=== PATIENT | male | born 1955 | race Caucasian/White ===

== ENCOUNTER 2018-03-14 00:24 | Outpatient (CLI) | payer OTHER, SELFPAY ==
--- NOTE | 2018-03-14 15:10 | DI.RAD_ITS ---
SYMPTOMS/DIAGNOSIS: F/U STONE, H/O KIDNEY STONES, Z87.442, HORSESHOE KIDNEY, Q63.1 KUB: Comparison x-ray is 09/09/17. Comparison CT scan is 09/15/15. There are again seen stones overlying the lower pole of the left kidney and the upper pole of the left kidney, consistent with nephrolithiasis. This patient has a known horseshoe kidney. There is also a round calcification overlying the left aspect of the 4th lumbar vertebral body, consistent with a known stone in the inferior portion of the horseshoe kidney. Surgical clips are again seen in the right abdomen. The bowel gas pattern is nonspecific. The bones are intact. IMPRESSION: Stable bilateral nephrolithiasis.
== END 2018-03-14 00:44 ==
PROVIDERS: Visit Provider Urology
DX: N20.0 Calculus of kidney (principal); Z87.442 Personal history of urinary calculi; Q63.1 Lobulated, fused and horseshoe kidney
CPT/HCPCS: 74018

== ENCOUNTER 2019-10-16 14:10 | Outpatient (CLI) | payer OTHER, SELFPAY ==
--- NOTE | 2019-10-16 13:44 | DI.US_ITS ---
EXAM: US RENAL CLINICAL HISTORY: MONITOR STONES, NEW ONSET GROSS HEMATURIA, Q63.1,N20.0,R31.0. TECHNIQUE: Liu scale, color and spectral Doppler were used. COMPARISON: ABD/PELVIS WO W CONTRAST from 09/16/2015 XR ABDOMEN FLAT PLATE from 03/14/2018 FINDINGS: A horseshoe kidney is again noted. Renal size in cm: Right: 15.2 by 5 by 5.6 left: 15.2 x 6.6 x 5.2 cm. Echogenicity: Normal Hydronephrosis: No Cyst or mass: Cyst at the lateral left kidney measuring 3 cm. No mass. Nephrolithiasis: Multiple bilateral renal calculi. 4 millimeter and 5 millimeter calcifications are seen in the mid right kidney. A 9 millimeter stone is seen at the lower pole of the left kidney. Other findings: None Bladder:There is a nonmobile solid mass measuring 1.8 x 1.0 x 1.7 cm showing mild vascularity. There is no bladder wall thickening.. Ureteral jets were not visualized. Prevoid vol:417 cc Postvoid vol: 0 cc Prostate volume: 28 cc IMPRESSION: 1.8 centimeter bladder mass. Cystoscopy is recommended. Bilateral renal calculi. No evidence of hydronephrosis. DATA REPOSITORY:
== END 2019-10-16 14:30 ==
PROVIDERS: Visit Provider Urology
DX: N20.0 Calculus of kidney (principal); R31.0 Gross hematuria; N28.1 Cyst of kidney, acquired; N32.89 Other specified disorders of bladder
CPT/HCPCS: 76770

== ENCOUNTER 2019-10-23 08:44 | Outpatient (CLI) | payer OTHER, SELFPAY ==
[2019-10-24 13:59] LABS: COVID-19 RT-PCR UVMMC Result Negative (Negative)
== END 2019-10-23 09:04 ==
PROVIDERS: Visit Provider Urology
DX: Z11.59 Encounter for screening for other viral diseases (principal)
CPT/HCPCS: U0003

== ENCOUNTER 2019-10-29 06:18 | Day surgery (SDC) | payer OTHER, SELFPAY ==
[2019-10-29 06:20] VITALS: BP 141/82; PULSE 73; RESP 16; TEMP 36.6; O2SAT 95
[2019-10-29] MEDS: Lactated Ringers 1,000 ML 80 ML IV (06:47)
--- NOTE | 2019-10-29 07:11 | W.PM.HP.N ---
Date of service: 10/29/19 Time of Service: 07:11 Assessment and Plan Assessment and plan (1) Hematuria: Status: Chronic Assessment and plan: We will move ahead with cystoscopy and transurethral resection of any visible bladder lesion. We will instill Mitomycin C into the bladder if a tumor is identified. (2) Bladder mass: Status: Acute History of Present Illness History of Present Illness Chief Complaint: Bladder mass Narrative: This is a 64-year-old gentleman who has had intermittent gross painless hematuria. He has a history of kidney stones, so initially he thought that the bleeding was related to his stone disease. We evaluated him with a renal and bladder ultrasound and discovered a small lesion within the bladder. He presents now for cystoscopy with transurethral resection of a presumed bladder tumor. Review of Systems Narrative: No fevers or chills No vision change or dysphasia No diabetes or thyroid No hemoptysis or sputum production No palpitations. Occasional chest pain at rest c/o heartburn. No hepatitis, ulcers, jaundice, diarrhea or constipation No seizures, strokes or peripheral neuropathy No bleeding disorders or anemia No gout [facility] Medical History (Updated 10/29/19 @ 07:13 by Michel Cleary MD) Bladder mass (Acute) Surgical History History of urologic surgery (Acute) Social History (Updated 03/14/18 @ 15:20 by Elyse Lundy RN) Smoking/Tobacco Use Status: Current every day Tobacco Type: cigarettes Alcohol Intake: never Drug use: Never Substance use type: does not use Do you feel safe at home: Yes Do you feel safe in your relationship?: Yes Meds Home Medications and Allergies Home Medications Medication Instructions Recorded Confirmed Type sildenafil (pulm.hypertension) 20 60 mg PO PRN #30 tab-cap MDD 100 mg 02/05/19 10/29/19 Rx mg tablet Allergies Allergy/AdvReac Type Severity Reaction Status Date / Time No Known Allergies Allergy Unverified 10/29/19 06:23 Exam Narrative Exam Narrative: He does not appear septic or toxic His vital signs are documented elsewhere His chest wall motion is normal. His lungs are clear. Cardiac exam shows a regular rate and rhythm His abdomen is soft with no mass He is awake, alert and oriented. Results Last Vital Signs Temp 36.6 C 05/07/20 06:20 Pulse 73 10/29/19 06:20 Resp 16 10/29/19 06:20 BP 141/82 H 10/29/19 06:20 Pulse Ox 95 10/29/19 06:20 COVID-19 Screening Traveled to [place] from one of the affected countries or regions?: NO Medical treatment received for symptoms/illness related to travel?: Preop testing completed and negative
[2019-10-29] MEDS: ceFAZolin 2 GM/50 ML BAG IVPB (07:42)
[2019-10-29] MEDS: Lidocaine 2% Jelly 6 ML SYR (08:05)
--- NOTE | 2019-10-29 08:11 | W.PM.DSUDISC ---
Discharge Plan Disposition Patient Disposition: HOME Condition: Stable Discharge Details Attending Provider: Michel Cleary Primary Care Provider: Unknown,Unknown Home Meds and New Rx's Prescriptions: No Action sildenafil (pulm.hypertension) 20 mg tablet 60 mg PO PRN MDD 100 mg Qty: 30 RF: 12 Discharge Instructions Additional Instructions: I will instill Mitomycin C into his bladder/catheter when it is available. Catheter should then be clamped for 1 to 2 hours (unclamp prn pain) before unclamping, draining bladder and removing thao F/U 1 week for pathology results - can be done by phone if pt is comfortable with that No straining or lifting over 10 pounds for 3 days Activity:: see above Shower/Bathe:: 24 hours Diet:: As Tolerated Discharge Orders Discharge Orders: Discharge Order (Routine); Ordered 10/29/19 Ordered By: Michel Cleary DS: Diagnosis Discharge Diagnosis (1) Hematuria: Status: Chronic (2) Bladder mass: Status: Acute
--- NOTE | 2019-10-29 08:15 | BLADDER_PTH ---
PATIENT: Jaiden Alfonso LOC: [facility] U#:[id number] AGE/SX: 64/M ROOM: RE10/29/[address]: Michel Cleary MD : 1955 BED: DIS: 10/29/2019 SPEC #: [id number] RECD: 10/29/19 12:13 STATUS: MICA RENabil #: [id number] ANTOLIN: 10/29/19 08:[address]: Michel Cleary DEPT: Surgical Specimen RECD BY: Tomas Fine Tissues: 1 - BLADDER BIOPSY Procedures: GROSS AND MICRO LEVEL 5 Comments: [id number]
--- NOTE | 2019-10-29 08:23 | W.PM.OP ---
Date of service: 10/29/19 Time of Service: 08:23 Operative Note Operative Note DATE OF PROCEDURE: 10/29/19 PRE-OP DIAGNOSIS: Bladder mass POST-OP DIAGNOSIS: same PROCEDURE: Cystoscopy, TURBT (2 to 5 cm), Instillation of Mitomycin C into bladder SURGEON: Michel Cleary ANESTHESIA: MAC ESTIMATED BLOOD LOSS: 100 PATHOLOGY: other (Bladder tumor) COMPLICATIONS: None Patient was transported to: same day Patient's condition: stable Indications: This is a 64-year-old gentleman who presented with gross hematuria. We evaluated him with an ultrasound which revealed a mass in the bladder. He presents for transurethral resection of the mass. If the mass has the clinical appearance of a urothelial cell carcinoma, we will plan on instilling a dose of mitomycin into the bladder Findings: 2 to 5 cm papillary lesion at the base of the bladder just behind the trigone Procedure Description: The patient was brought to the operating room on 10/29/2019. He was given preoperative IV antibiotics. After successful induction of monitored anesthesia care, he was placed in the dorsal lithotomy position. His genitalia was prepped and draped. 2% Xylocaine jelly was instilled into the urethra to act as a local anesthetic. A 24 Syrian resectoscope sheath was passed through the urethra into the bladder. We used a visual obturator and a 30 degree lens to inspect the urethral and bladder mucosa. The pendulous, bulbous and membranous urethra was appeared normal. The prostatic urethra showed diffuse enlargement with an elevated bladder neck. The bladder neck was entered and the bladder mucosa was inspected. Both ureteral orifices appeared normal. On the bladder base, just behind the trigone in the midline there was a 3 cm papillary lesion which had a typical appearance of a low-grade urothelial cell carcinoma. No additional lesions were identified throughout the remainder of the bladder. We then used the [employer] resectoscope to excise the lesion. We cauterized the base of the resection site. Both ureteral orifice ease appeared intact after the resection. Once hemostasis had been obtained, we passed a 16 Syrian Ramirez catheter through the urethra into the bladder. We inflated the catheter balloon with 10 cc of sterile water. We asked the pharmacy to mix 40 mg of mitomycin-C and 40 mL of dilutant. We will plan on instilling the medication into the bladder and clamped the catheter while the patient is back in day surgery. He tolerated the procedure well. I would estimate his blood loss at 100 cc.
[2019-10-29] MEDS: Phenazopyridine 200 MG TAB PO (08:34)
[2019-10-29 08:50] VITALS: BP 161/83; PULSE 62; RESP 16; TEMP 36.3; O2SAT 94
[2019-10-29 09:18] VITALS: BP 135/78; PULSE 61; RESP 16; TEMP 36.4; O2SAT 94
== END 2019-10-29 10:05 | disposition home or self-care (01) ==
PROVIDERS: Visit Provider Urology
PROC: 0TBB8ZZ Excision of Bladder, Via Natural or Artificial Opening Endoscopic (ICD-10-PCS; CPT 52235; principal; 2019-10-29 07:30)
PROC: (CPT 52235; 2019-10-29 07:30)
DX: C67.9 Malignant neoplasm of bladder, unspecified (principal); R31.0 Gross hematuria; F17.210 Nicotine dependence, cigarettes, uncomplicated
CPT/HCPCS: 52235; 51720; 88305; NC; 88307; J0690; J1885; J2001; J2704

== ENCOUNTER 2020-05-06 15:00 | Outpatient (CLI) | payer OTHER, SELFPAY ==
[2020-05-09 12:34] LABS: SARS-CoV-2 RNA Not Detected (NotDetected); SARS-CoV-2 RNA Source Nasal/Nares
== END 2020-05-06 15:20 ==
PROVIDERS: Visit Provider Urology
DX: Z20.828 Contact with and (suspected) exposure to other viral communicable diseases (principal)
CPT/HCPCS: U0003

== ENCOUNTER 2020-08-19 10:50 | Outpatient (REF) | payer OTHER, SELFPAY ==
--- NOTE | 2020-08-19 09:30 | PAPNONF_PTH ---
PATIENT: Jaiden Alfonso LOC: [facility] U#:[id number] AGE/SX: 65/M ROOM: RE08/19/[address]: Michel Cleary MD : 1955 BED: DIS: 08/19/2020 SPEC #: [id number] RECD: 08/19/20 12:56 STATUS: MICA REQ #: [id number] ANTOLIN: 08/19/20 09:[address]: Michel Cleary DEPT: [facility] Cytology RECD BY: Shyla Rodríguez Tissues: 1 - BODY FLUID CYTO(SPUTUM/URINE)[facility] Procedures: BODY FLUID CYTO(URINE/SPUTUM) Comments: [id number] (TOTAL VOLUME = 30 ml's) (30 ml'S URINE & 30 ml's CYTOLYT ADDED)
== END 2020-08-19 10:51 | disposition home or self-care (01) ==
LOC: LBN 10:50
PROVIDERS: Visit Provider Urology
DX: R82.89 Other abnormal findings on cytological and histological examination of urine (principal); Z85.51 Personal history of malignant neoplasm of bladder
CPT/HCPCS: 88104

== ENCOUNTER 2020-11-22 09:43 | Outpatient (REF) | payer OTHER, SELFPAY ==
--- NOTE | 2020-11-22 09:00 | PAPNONF_PTH ---
PATIENT: Jaiden Alfonso LOC: [facility] U#:[id number] AGE/SX: 65/M ROOM: RE11/22/[address]: Michel Cleary MD : 1955 BED: DIS: 11/22/2020 SPEC #: [id number] RECD: 11/22/20 13:05 STATUS: MICA RENabil #: [id number] ANTOLIN: 11/22/20 09:[address]: Michel Cleary DEPT: COUNTS INCLUDE 234 BEDS AT THE [facility] Cytology RECD BY: Shyla Rodríguez Tissues: 1 - BODY FLUID CYTO(SPUTUM/URINE)[facility] Procedures: BODY FLUID CYTO(URINE/SPUTUM) Comments: (TOTAL VOLUME = 60 ml's) (30 ml's URINE & 30 ml's CYTOLYT ADDED IN 2 CONTAINERS)
== END 2020-11-22 09:44 | disposition home or self-care (01) ==
LOC: LBN 09:43
PROVIDERS: Visit Provider Urology
DX: Z85.51 Personal history of malignant neoplasm of bladder (principal)
CPT/HCPCS: 88104

== ENCOUNTER 2021-01-17 03:18 | Outpatient (CLI) | payer OTHER, SELFPAY ==
[2021-01-17 11:33] LABS: Source Nasal/Nares
[2021-01-17 15:18] LABS: COVID-19 PCR Negative (Negative)
== END 2021-01-17 03:19 | disposition home or self-care (01) ==
LOC: LBO 03:18
PROVIDERS: Visit Provider Urology
DX: Z20.822 Contact with and (suspected) exposure to COVID-19 (principal); Z01.818 Encounter for other preprocedural examination
CPT/HCPCS: 87635

== ENCOUNTER 2021-01-19 06:08 | Day surgery (SDC) | payer OTHER, SELFPAY ==
[2021-01-19 06:19] VITALS: BP 157/70; PULSE 58; RESP 16; TEMP 36.3; O2SAT 98
[2021-01-19] MEDS: Lactated Ringers 1,000 ML 80 ML IV (06:48)
--- NOTE | 2021-01-19 06:49 | W.PM.HP.N ---
Date of service: 01/19/21 Time of Service: 06:49 Assessment and Plan Assessment and plan (1) Bladder cancer: Status: Acute Assessment and plan: Cystoscopy, bladder biopsy and fulguration of the biopsy sites. His followup and additional treatments will depend on his pathology. History of Present Illness History of Present Illness Chief Complaint: Bladder cancer Narrative: This is a 65-year-old gentleman who has a history of urothelial cell carcinoma of the bladder. There was high-grade and had a inverted growth pattern. He was treated with transurethral resection but has not received intravesical chemotherapy or immunotherapy. On surveillance cystoscopy, we found a papillary lesion medial to the right ureteral orifice. He presents for biopsy and fulguration. Review of Systems Narrative: No fevers or chills No vision change or dysphasia No diabetes or thyroid No shortness of breath, cough or hemoptysis No chest pain or palpitations No nausea, vomiting, hepatitis, ulcers, jaundice No seizures, strokes or peripheral neuropathy No bleeding disorders or anemia No gout PFSH Medical History Bladder cancer Right hydrocele Surgical History History of urologic surgery Social History (Updated 03/14/18 @ 15:20 by Elyse Lundy RN) Smoking/Tobacco Use Status: Current every day Tobacco Type: cigarettes Smoking risk assessment performed?: Yes Alcohol Intake: never Drug use: Never Substance use type: does not use Current gender identity: male Do you feel safe at home: Yes Do you feel safe in your relationship?: Yes Meds Allergies and Home Medications Allergies Allergy/AdvReac Type Severity Reaction Status Date / Time No Known Allergies Allergy Unverified 01/19/21 06:26 Home Medications Medication Instructions Recorded Confirmed Type sildenafil 100 mg tablet 100 mg PO DAILY PRN #10 tab 02/19/20 01/19/21 Rx Exam Narrative Exam Narrative: Current distress. He is cooperative. His vital signs are documented elsewhere His chest wall motion is normal. He is not short of breath at rest. Cardiac exam shows a regular rate and rhythm His abdomen is soft with no mass He is awake and alert Results Last Vital Signs Temp 36.3 C L 01/19/21 06:19 Pulse 58 L 01/19/21 06:19 Resp 16 01/19/21 06:19 BP 157/70 H 01/19/21 06:19 Pulse Ox 98 01/19/21 06:19
--- NOTE | 2021-01-19 07:03 | W.ANESPRE ---
General Info Date of Service Date Performed: 01/19/21 Height: 6 ft Weight: 118.1 kg Body Mass Index (BMI): 35.3 Surgical Procedure: Operation Date: 01/19/21 07:40 Proposed Procedures Side Surgeon p Cystoscopy with Bladder Biopsy WITH FULGURATION Michel Cleary MD Meds Allergies and Home Medications Allergies Allergy/AdvReac Type Severity Reaction Status Date / Time No Known Allergies Allergy Unverified 01/19/21 06:26 Home Medication Medication Instructions Recorded sildenafil 100 mg tablet 100 mg PO DAILY PRN #10 tab 02/19/20 Current Visit Medications: Current Medications Generic Name Dose Route Start Last Admin Trade Name Freq PRN Reason Stop Dose Admin Ringer's Solution 1,000 mls @ 80 mls/hr 01/19/21 06:00 01/19/21 06:48 IV 02/17/21 23:59 80 mls/hr INFUSION MARGUERITE Administration Cefazolin Sodium/Dextrose 2 gm in 50 mls @ 100 mls/hr 01/19/21 06:00 Ancef Duplex IVPB 01/19/21 16:00 PREOP MARGUERITE IV Miscellaneous Supplies 1 each 01/19/21 06:00 Iv Access IV 02/17/21 23:59 DIRECTED MARGUERITE Sodium Chloride 0 ml 01/19/21 06:00 Normal Saline Flush 10 Ml Syr IV 02/17/21 23:59 PRN PRN Sodium Chloride 0 ml 01/19/21 06:00 Normal Saline 10 Ml Vial IJ 02/17/21 23:59 DIRECTED PRN Sterile Water 0 ml 01/19/21 06:00 Water,Injection,Sterile 10 Ml Vial IJ 02/17/21 23:59 DIRECTED PRN PFSH Active Problems Active Problems: Problem Status Onset Code Right hydrocele N43.3 Bladder cancer C67.9 Kidney stones N20.0 Horseshoe kidney with renal calculus Q63.1, N20.0 Medical History Medical History Bladder cancer Right hydrocele Surgical History Surgical History History of urologic surgery Tobacco Smoking/Tobacco Use Status: Current every day Tobacco Type: cigarettes Alcohol Alcohol Intake: never Substance Use Substance use: Never Substance use type: does not use Vital Signs and Lab Results Vital Signs Most Recent Vital Signs in EMR: Most Recent Vital Signs Temp Pulse Resp BP Pulse Ox 36.3 C L 58 L 16 157/70 H 98 01/19/21 06:19 01/19/21 06:19 01/19/21 06:19 01/19/21 06:19 01/19/21 06:19 Lab Results Blood Type / Crossmatch: No Data to Display Complete Blood Count: No Data to Display Complete Metabolic Panel: No Data to Display Liver Function Panel: No Data to Display Coagulation Panel: No Data to Display Cardiac Panel: No Data to Display Arterial Blood Gas: No Data to Display Venous Blood Gas: No Data to Display Pancreas Panel: No Data to Display Thyroid Panel: No Data to Display Infectious Disease: Coronavirus (COVID-19)(PCR) Negative (Negative) 01/17/21 08:33 01/17/21 Coronavirus 2019 Source Nasal/Nares 01/17/21 08:33 01/17/21 Blood Cultures: No Data to Display Toxicology Panel: No Data to Display Anesthesia Assessment and Plan Anesthesia History Personal History: No History of Anesthesia Complications Family History: No Family History of Anesthesia Complications Exercise Tolerance Exercise Tolerance: Metabolic Equivalents>4 Pertinent Negatives Pertinent Negatives: No Symptoms of GERD, No Major Cardiovascular Symptoms or Complaints, No Major Pulmonary Symptoms or Complaints and No History of CVA/TIA Cardiac & Pulmonary Exam Cardiac Exam: Normal S1/S2 Heart Sounds Pulmonary Exam: Clear Bilateral Breath Sounds Airway Exam Known Difficult Airway: No Mallampati Class: 2 Mouth Opening: Normal (> 3cm) Thyromental Distance: Greater than 3 cm Neck Range of Motion: Full ROM Neck Circumference: Thick Teeth Condition: Normal Dentition ASA Classification ASA Score: ASA 2 Emergency Case?: No NPO Status NPO Status: NPO Clears >2 hours, Solids >8 hours Anesthesia Plan Resuscitation Status: Full Code Anesthesia Technique: General Anesthesia Airway Planned: Natural Airway Monitors Used: Standard Monitors
[2021-01-19 07:09] VITALS: BMI 35.3
[2021-01-19] MEDS: ceFAZolin 2 GM/50 ML BAG IVPB (07:40)
[2021-01-19] MEDS: Lidocaine 2% Jelly 6 ML SYR (07:45)
--- NOTE | 2021-01-19 07:50 | BLADDER_PTH ---
PATIENT: Jaiden Alfonso LOC: [facility] U#:[id number] AGE/SX: 65/M ROOM: RE01/19/[address]: Michel Cleary MD : 1955 BED: DIS: 01/19/2021 SPEC #: [id number] RECD: 01/19/21 12:38 STATUS: MICA REQ #: [id number] ANTOLIN: 01/19/21 07:[address]: Michel Cleary DEPT: Surgical Specimen RECD BY: Shyla Rodríguez ENTERED: 01/19/21 12:38 SP TYPE: Bladder OTHR DR: Unknown,Unknown Tissues: 1 - BLADDER BIOPSY Procedures: GROSS AND MICRO LEVEL 4 Comments: [id number]
--- NOTE | 2021-01-19 07:58 | W.PM.DSUDISC ---
Discharge Plan Disposition Patient Disposition: HOME Condition: Stable Discharge Details Reason For Visit: bladder cancer Attending Provider: Michel Cleary Primary Care Provider: Unknown,Unknown Home Meds and New Rx's Prescriptions: No Action sildenafil 100 mg tablet 100 mg PO DAILY PRN (Reason: sexual activity) Qty: 10 RF: 12 Discharge Instructions Additional Instructions: followup 2 weeks to review pathology Activity:: Activity as Tolerated Shower/Bathe:: 24 hours Diet:: As Tolerated Discharge Orders Discharge Orders: Discharge Order (Routine); Ordered 01/19/21 Ordered By: Michel Cleary DS: Diagnosis Discharge Diagnosis (1) Bladder cancer: Status: Acute
--- NOTE | 2021-01-19 08:00 | W.PM.OP ---
Date of service: 01/19/21 Time of Service: 08:00 Operative Note Operative Note DATE OF PROCEDURE: 01/19/21 PRE-OP DIAGNOSIS: Bladder cancer POST-OP DIAGNOSIS: same PROCEDURE: cystoscopy, bladder biopsy and fulguration of tumor SURGEON: Michel Cleary ANESTHESIA TYPE: Local By Surgeon and General:No Airway Refer to Anesthesia Record ESTIMATED BLOOD LOSS: 5 PATHOLOGY: other (bladder biopsies) COMPLICATIONS: None Patient was transported to: same day Patient's condition: stable Indications: This is a 65-year-old gentleman previously identified as having a high-grade, noninvasive urothelial cell carcinoma of the bladder. He was treated with transurethral resection alone. He has not had intravesical chemotherapy or immunotherapy. On his recent surveillance cystoscopy, there appeared to be some papillary mucosa adjacent to the right ureteral orifice. He presents for biopsy/resection of this area. Findings: papillary mucosa adjacent to right ureteral orifice Procedure Description: Alireza was brought to the operating room on 01/19/2021. After successful induction of general anesthesia without intubation, he was placed in the dorsal lithotomy position. His genitalia was prepped and draped. 2% Xylocaine jelly was instilled into the urethra to act as a local anesthetic. A 22 Italian rigid cystoscope was passed through the urethra into the bladder. The urethra and bladder were inspected with the 30 degree lens. The graft the pendulous bulbar and membranous urethra was all appeared normal with no strictures. The prostatic urethra showed some lateral lobe enlargement but no significant median lobe. The bladder neck was entered and the bladder mucosa was inspected. Ureteral orifice appeared normal. Just medial to the right ureteral orifice, the mucosa appeared to have increased papillary component compared to the remainder of the bladder mucosa. No additional suspicious areas were seen. I used cold cup biopsy forceps to biopsy the mucosa. I then used a Bugbee electrode to fulgurate any remaining lesion as well as the biopsy site. The ureteral orifice itself was not fulgurated. The bladder was emptied and the scope was removed. He tolerated the procedure well with no complications.
[2021-01-19 08:35] VITALS: BP 156/88; PULSE 67; RESP 16; TEMP 36.1; O2SAT 98
--- NOTE | 2021-01-19 08:41 | W.ANESPOSTOP ---
Postoperative Evaluation Date, Time and Location Date Performed: 01/19/21 Time Performed: 08:41 Patient Location: Day Surgery Unit Vital Signs Most Recent Imported Vital Signs: Most Recent Vital Signs Temp Pulse Resp BP Pulse Ox 36.1 C L 67 16 156/88 H 98 01/19/21 08:35 01/19/21 08:35 01/19/21 08:35 01/19/21 08:35 01/19/21 08:35 Pain Score Most Recent Pain Score: Most Recent Pain Score Pain Level 0 01/19/21 08:35 Assessment Mental Status: Awake (Alert & Oriented to Patient Baseline) Airway and Respiratory Function: Patent airway with normal (patient baseline) respiratory exam Cardiovascular Function: Hemodynamically Stable Hydration Status: Adequately Hydrated Nausea & Vomiting: No Nausea or Vomiting Pain: Pt. Denies Any Pain Peripheral Nerve Block: Patient did not receive a nerve block
[2021-01-19 08:59] VITALS: BP 156/88; PULSE 60; RESP 16; TEMP 36.1; O2SAT 96
== END 2021-01-19 09:55 | disposition home or self-care (01) ==
PROVIDERS: Visit Provider Urology
PROC: 0TBB8ZX Excision of Bladder, Via Natural or Artificial Opening Endoscopic, Diagnostic (ICD-10-PCS; CPT 52204; principal; 2021-01-19 07:30)
DX: C67.9 Malignant neoplasm of bladder, unspecified (principal)
CPT/HCPCS: 52204; 88305; J0690; J1100; J1885; J2001; J2250; J2405

== ENCOUNTER 2022-01-30 09:49 | Outpatient (REF) | payer OTHER, SELFPAY ==
--- NOTE | 2022-01-30 09:30 | PAPNONF_PTH ---
PATIENT: Jaiden Alfonso LOC: [facility] U#:[id number] AGE/SX: 66/M ROOM: RE01/30/[address]: Michel Cleary MD : 1955 BED: DIS: 01/30/2022 SPEC #: [id number] RECD: 01/30/22 13:19 STATUS: MICA REQ #: [id number] ANTOLIN: 01/30/22 09:[address]: Michel Cleary DEPT: [facility] Cytology RECD BY: Shyla Rodríguez Tissues: 1 - BODY FLUID CYTO(SPUTUM/URINE)[facility] Procedures: BODY FLUID CYTO(URINE/SPUTUM) Comments: [id number] (TOTAL VOLUME = 50 ml) (50 ml URINE & 50 ml CYTOLYT ADDED)
== END 2022-01-30 09:50 | disposition home or self-care (01) ==
LOC: LBN 09:49
PROVIDERS: Visit Provider Urology
DX: Z85.51 Personal history of malignant neoplasm of bladder (principal)
CPT/HCPCS: 88104

== ENCOUNTER 2023-02-01 09:14 | Outpatient (REF) | payer OTHER, SELFPAY ==
--- NOTE | 2023-02-01 09:00 | PAPNONF_PTH ---
PATIENT: Jaiden Alfonso LOC: [facility] U#:[id number] AGE/SX: 67/M ROOM: RE02/01/[address]: Michel Cleary MD : 1955 BED: DIS: 02/01/2023 SPEC #: [id number] RECD: 02/01/23 12:25 STATUS: MICA RENabil #: [id number] ANTOLIN: 02/01/23 09:[address]: Michel Cleary DEPT: [facility] Cytology RECD BY: Puja Morrell Tissues: 1 - BODY FLUID CYTO(SPUTUM/URINE)[facility] Procedures: BODY FLUID CYTO(URINE/SPUTUM) Comments: [id number] (TV = 45 ml, 30 ml CYTOLYT ADDED) (REFRIGERATED)
[2023-02-01 21:29] LABS: PSA, Diagnostic 0.8 ng/mL (<=4.5)
== END 2023-02-01 09:15 | disposition home or self-care (01) ==
LOC: LBN 09:14
PROVIDERS: Visit Provider Urology
DX: Z80.42 Family history of malignant neoplasm of prostate (principal); C67.9 Malignant neoplasm of bladder, unspecified
CPT/HCPCS: 84153; 88104

== ENCOUNTER 2023-06-26 10:02 | Emergency (ER) | payer OTHER, SELFPAY ==
[2023-06-26] VITALS (8 sets, daily range): BP systolic 193–208; BP diastolic 83–111; PULSE 64–67; RESP 18; TEMP 36.8; O2SAT 94–98
--- NOTE | 2023-06-26 10:04 | ED.GENADUL_ITS ---
HPI General Date/Time Provider Initiated Documentation: 06/26/23 10:04. HPI Narrative: MDM This is an overall well-appearing normothermic and not tachycardic 67-year-old male with history of ureterolithiasis with left flank pain but no obvious hydronephrosis for which patient will undergo dry CT abdomen pelvis. No left lower quadrant pain or diarrhea to suggest diverticulitis. No syncope no history of AAA to suggest ruptured AAA. No cough nor shortness of breath to suggest pneumonia. Not tachycardic nor hypoxic to suggest PE so I did not send a D-dimer. No chest pain to suggest ACS. No right lower quadrant pain to suggest appendicitis. No pain out of proportion to suggest necrotizing soft tissue infection. Not an alcoholic nor with any epigastric pain so doubt pancreatitis. Will obtain urinalysis strain urine and treat nausea with ondansetron. No rash to abdomen to suggest zoster. Given prior history of abdominal surgery with nausea SBO certainly is a possibility. 10:56 AM Urinalysis showing moderate hematuria. Microscopy pending. Nitrite negative??not consistent with UTI. CBC lacks anemia thrombocytopenia and leukocytosis. 11:15 AM Basic metabolic panel showing no JERROD. Mildly elevated BUN improved prior to prior. No acute electrolyte abnormalities. Microscopy showing hematuria. 12:07 PM Patient was found to have a calculus in his bladder which certainly could be recently passed stone. Patient had improved pain. Will proceed with an empiric trial of discharge with expectant outpatient management. He felt improved in the emergency department. Chronic conditions affecting the care of the patient: Bladder cancer History obtained from an outside historian: N/A External record review: No [facility] [place] Medications: Ondansetron, ketorolac Social determinants of health affecting disposition: N/A Management discussed with: N/A Treatment/interventions considered: N/A Response to therapies provided: Improved pain HPI This is a 67-year-old male with history of ureterolithiasis arrived to the emergency department via private vehicle in the setting of left sided flank pain which began approximately 1 hour ago associated with nausea. Patient reports that he last had a kidney stone approximately 1 year ago. He has had kidney infections in the past and required an exploratory laparotomy when he was 20 years old in setting of a kidney infection. He follows locally with urology. He has taken no recent falls. He denies chest pain shortness of breath vomiting diarrhea and syncope. He said no hematuria dysuria nor frequency. He is a daily tobacco user but denies routine ethanol and illicits. Exam General: Chronically ill-appearing in no acute distress speaking in complete sentences. Elevated BMI. Head: Normocephalic, atraumatic. Eye: Extraocular eye movements intact. No conjunctival injection. No scleral icterus. Ear, nose, mouth, throat: Grossly normal inspection. Normal voice, handling secretions normally. Neck: Trachea midline. Cardiovascular: Well-perfused distal extremities. Regular rate and rhythm Respiratory: Nonlabored respiration. Clear lungs bilaterally Gastrointestinal: Mildly distended abdomen. Soft nontender. No rebound. No guarding. Midline well-healed surgical scar. No rash to abdomen. Flank: Left-sided CVA tenderness Musculoskeletal: No edema. Moving all 4 extremities spontaneously. Skin: Normal for age and race, grossly normal temperature and turgor. No acute rash. Neurologic: Alert and appropriate, no apparent acute deficits. Psychiatric: Mood and manner are appropriate. Grooming and personal hygiene are appropriate. Related Data Home Medications Medication Instructions Recorded Confirmed sildenafil (pulm.hypertension) 20 60 mg (3 x 20 mg) PO PRN #50 10/24/22 02/01/23 mg tablet tab-caps Previous Rx's Medication Instructions Recorded sildenafil (pulm.hypertension) 20 60 mg (3 x 20 mg) PO PRN #50 10/24/22 mg tablet tab-caps Allergies Allergy/AdvReac Type Severity Reaction Status Date / Time No Known Allergies Allergy Unverified 02/01/23 08:54 PFSH All Active Problems (Updated 06/26/23 @ 12:09 by Dionicio Cross MD) Blood pressure elevated without history of HTN (Acute) Hematuria (Acute) Family history of prostate cancer (Acute) Right hydrocele (Acute) Bladder cancer (Acute) Kidney stones (Chronic) Horseshoe kidney with renal calculus (Chronic) Surgical History History of urologic surgery Social History (Updated 03/14/18 @ 15:20 by Elyse Lundy RN) Smoking/Tobacco Use Status: Current every day Tobacco Type: cigarettes Smoking risk assessment performed?: Yes Alcohol Intake: never Drug use: Never Substance use type: does not use Housing: apartment Current gender identity: male Do you feel safe at home: Yes Do you feel safe in your relationship?: Yes Medical Decision Making Quality:SDNH Health Related Social Needs: No Data to Display Discharge Plan Disposition Patient Disposition: Home Discharge Details Clinical Impression: Hematuria, Kidney stones, Blood pressure elevated without history of HTN Primary Care Provider: Unknown,Unknown ED Provider: Dionicio Cross Home Meds and New Rx's Prescriptions: Continued sildenafil (pulm.hypertension) 20 mg tablet 60 mg PO PRN MDD 100 mg Qty: 50 12RF Discharge Instructions Additional Instructions: You are seen in the emergency department for your flank pain. Your CAT scan shows that you have a stone that has passed into your bladder. This certainly could have been the cause of your pain. Please return to the emergency departm ent if you cannot eat or drink as result of nausea vomiting or if you develop worsening flank pain. Please also follow-up with your primary care provider as your blood pressure was markedly elevated in the emergency department. For your pain please take medications as follows: 1. Take acetaminophen (Tylenol), 1,000 mg (two 500 mg tabs) every 6 hours 2. Take ibuprofen (Advil), 400 mg every 6 hours. Discharge Data Discharge Date/Time-TO BE ENTERED AT DEPARTURE: 06/26/23 12:18 POCUS Exam (ED) Limited Retroperitoneal(Renal)Exam DATE OF EXAM: 06/26/23 TIME OF EXAM: 10:27 PROVIDER THAT PERFORMED THE STUDY: Dionicio Cross IS THIS A REPEAT EXAM DURING THIS ENCOUNTER: No REASON FOR EXAM: Flank pain/left side VISUALIZED STRUCTURES: Left kidney and Right kidney PERTINENT FINDINGS/IMPRESSION: no hydronephrosis present INCIDENTAL FINDINGS: No hydronephrosis bilaterally Exam complete
[2023-06-26] MEDS: Ondansetron 4 MG/2 ML VIAL IVP (10:48)
[2023-06-26 10:53] LABS: Abs Immature Grans 0.01 10^3/uL (0.0-0.06); Absolute Basophil Count 0.06 10^3/uL (0.0-0.2); Absolute Eosinophil Count 0.07 10^3/uL (0.0-0.7); Absolute Lymphocyte Count 1.91 10^3/uL (1.2-3.4); Basophils % 0.8; Eosinophils % 0.9; HCT 45.2 % (40.0-50.0); HGB 15.6 g/dL (13.5-17.5); Immature Grans % 0.1; MCH 31.9 pg (27.0-33.0); MCHC 34.5 % (32.0-36.0); MCV 92 fL (80-95); MPV 9.3 fL (8.0-11.0); Monocytes % 5.2; Platelet Count 225 10^3/uL (130-400); RBC 4.89 10^6/uL (4.36-5.78); RDW 12.2 % (11.8-14.1); RDW-SD 41.4 fL; WBC 7.65 10^3/uL (4.4-10.8)
[2023-06-26 10:54] LABS: Bilirubin Negative (Negative); Blood Moderate (Negative); Clarity Clear (Clear); Glucose Negative (Negative); Ketones Negative (Negative); Leukocyte Esterase Negative (Negative); Nitrite Negative (Negative); Urobilinogen 0.2 mg/dL (Up to 0.2)
[2023-06-26 11:01] LABS: Bacteria Rare HPF (Negative); C & S Indicated? No; Casts 0-2 Hyaline LPF (Negative); Crystals Negative HPF (Negative); Epithelial Cells Rare HPF (Negative); Mucus Trace (Negative); WBC 0-2 HPF (0-5)
[2023-06-26 11:06] LABS: Anion Gap 5.7 mmol/L (3-11); BUN 19 mg/dL (7-18); CO2 29.3 mmol/L (21.0-32.0); CREATININE 1.1 mg/dL (0.70-1.30); Calcium 9.1 mg/dL (8.5-10.1); Chloride 104 mmol/L (98-107); Glucose 103 mg/dL (74-106); Potassium 4.7 mmol/L (3.5-5.1); Sodium 139 mmol/L (136-145)
[2023-06-26] MEDS: Ketorolac 15 MG/ML VIAL IVP (11:10)
--- NOTE | 2023-06-26 11:30 | DI.CT_ITS ---
Exam(s) CT ABDOMEN PELVIS WO EXAM: CT ABDOMEN PELVIS WO CLINICAL HISTORY: Flank pain left. TECHNIQUE: Imaging Protocol: Axial computed tomography images with coronal and sagittal reformatted images were created and reviewed. Oral: no COMPARISON: CT CT ABD AND PELVIS WITHOUT CONT from 04/24/2021 FINDINGS: Lung Bases: No acute findings. Liver: Normal density. No measurable mass. Gallbladder and biliary tract: Cholelithiasis. No gallbladder wall thickening or biliary dilatatio n. Pancreas: Normal density, no abnormal calcifications or inflammatory process. Spleen: Normal. Kidneys: Horseshoe kidney. Multiple bilateral calculi. No ureteral calculi. Surgical clips anterio r to the right kidney. Adrenal glands: No masses seen. Lymph nodes: Within normal limits. Vasculature: Abdominal aorta non-dilated. Soft tissues: Suture material anterior abdominal wall. Bladder: No wall thickening. 2 millimeter stone noted in bladder. A Stone was noted in the bladder in the previous exam however the color in stone appears smaller and this may not represent the same sto ne.. Bowel: No obstruction or bowel wall thickening. Peritoneal cavity: No ascites, collection or mesenteric inflammatory response. Reproductive organs: Unremarkable. Bones: Degenerative changes. Schmorl's node again noted at the superior endplate of L3. IMPRESSION: Horseshoe kidney with bilateral nephrolithiasis. No hydronephrosis or ureteral calculi. 2 millimete r bladder calculus. Findings called to Dr. Cross of the Emergency Department RADIATION DOSE DELIVERED: Total DLP DATA REPOSITORY: All CT scans at this facility are submitted to the National Radiology Data Registry (NRDR) Dose Index Registry (DIR) with the [employer] (ACR). RADIATION OPTIMIZATION: All CT scans at this facility use at least one of these dose optimization te chniques: automated exposure control; mA and/or kV adjustment per patient size (includes targeted exa ms where dose is matched to clinical indication); or iterative reconstruction.
== END 2023-06-26 12:18 | disposition home or self-care (01) ==
PROVIDERS: Emergency Provider Emergency Medicine
DX: N20.0 Calculus of kidney (principal); Q63.1 Lobulated, fused and horseshoe kidney; R31.9 Hematuria, unspecified; R03.0 Elevated blood-pressure reading, without diagnosis of hypertension; F17.210 Nicotine dependence, cigarettes, uncomplicated
CPT/HCPCS: 76775; 80048; 96374; 96375; 99284; 74176; 81003; 81015; 85025; J1885; J2405

== ENCOUNTER 2024-01-31 09:24 | Outpatient (REF) | payer OTHER, SELFPAY ==
--- NOTE | 2024-01-31 09:30 | PAPNONF_PTH ---
PATIENT: Jaiden Alfonso LOC: [facility] U#:[id number] AGE/SX: 68/M ROOM: RE01/31/[address]: Michel Cleary MD : 1955 BED: DIS: 01/31/2024 SPEC #: [id number] RECD: 01/31/24 12:28 STATUS: MICA RENabil #: [id number] ANTOLIN: 01/31/24 09:[address]: Michel Cleary DEPT: [facility] Cytology RECD BY: Puja Morrell Tissues: 1 - BODY FLUID CYTO(SPUTUM/URINE)[facility] Procedures: BODY FLUID CYTO(URINE/SPUTUM) Comments: [id number] (TV = 42ml, 30ml CYTOLYT ADDED) (REFRIGERATED)
== END 2024-01-31 09:25 | disposition home or self-care (01) ==
LOC: LBN 09:24
PROVIDERS: Visit Provider Urology
DX: C67.9 Malignant neoplasm of bladder, unspecified (principal)
CPT/HCPCS: 88104

== ENCOUNTER 2024-08-31 08:39 | Emergency (ER) | payer OTHER, SELFPAY ==
[2024-08-31 08:48] VITALS: BP 181/93; PULSE 66; RESP 18; TEMP 36.4; O2SAT 96
--- NOTE | 2024-08-31 09:15 | DI.RAD_ITS ---
Exam(s) XR HAND LT COMPLETE EXAM: XR HAND LT COMPLETE CLINICAL HISTORY: trauma to left hand dorsal 4/5 metacarpal. TECHNIQUE: 2D digital imaging was performed of the left hand. Three views were obtained. AP, later al and oblique views were obtained. COMPARISON: No exams were available for comparison FINDINGS: BONES: No acute fracture is present. No bony destructive lesion is seen. There is a well corticated o sseous density at the posterior aspect of the head of the middle phalanx of the 5th finger which is c hronic. JOINTS: No dislocation present. There are degenerative changes seen in the interphalangeal joints of the hand particularly the DIP joint of the 5th finger. SOFT TISSUE: Vascular calcifications are present. No radiopaque foreign bodies. IMPRESSION: No acute fracture or dislocation. DATA REPOSITORY: RADIATION DOSE DELIVERED:
--- NOTE | 2024-08-31 12:19 | W.ED.GENAD ---
Discharge Plan Disposition Patient Disposition: Home Condition: Stable Discharge Details Clinical Impression: Ulnar tunnel syndrome Primary Care Provider: Unknown,Unknown ED Provider: Shyla Jean Home Meds and New Rx's Prescriptions: Continued sildenafil (pulm.hypertension) 20 mg tablet 60 mg PO PRN MDD 100 mg Qty: 50 12RF Discharge Instructions Instructions: Cubital Tunnel Syndrome (DC) Additional Instructions: Use the splint as much as possible for the next week for comfort and to rest your fourth and fifth digits Take Motrin and Tylenol for pain Apply Voltaren gel topically Establish care with a primary care physician Follow-up with orthopedics Please return should you develop any new or worsening complaints Referrals: Serge Hendricks MD [ [facility] STAFF PHYSICIAN] - 2 days HPI General Date/Time Provider Initiated Documentation: 08/31/24 09:02. HPI Narrative: The patient is a 69-year-old male who presents with left wrist pain and paresthesias in the 4th and 5th digits, accompanied by difficulty with horse trainer strength over the past 2 weeks. He reports an initial injury to the dorsal aspect of his hand, specifically in the metacarpal region of the 4th and fifth digits. This injury was accompanied by a laceration that has since healed. However, he notes a progressive worsening of his symptoms over the past 2 weeks. He does not report any alterations in strength or sensation, chest pain, shortness of breath, dizziness, or headaches. Related Data Home Medications ?Medication ?Instructions ?Recorded ?Confirmed sildenafil (pulm.hypertension) 20 60 mg (3 x 20 mg) PO PRN #50 10/24/22 08/31/24 mg tablet tab-caps Previous Rx's ?Medication ?Instructions ?Recorded sildenafil (pulm.hypertension) 20 60 mg (3 x 20 mg) PO PRN #50 10/24/22 mg tablet tab-caps Allergies Allergy/AdvReac Type Severity Reaction Status Date / Time No Known Allergies Allergy Unverified 08/31/24 08:51 General Stated Complaint: Orthopedic SAHARA: 4 Exam Narrative Exam Narrative: General Appearance: The patient is alert and oriented. Vital signs: Within normal limits. HEENT: Pupils are equal, round, and reactive to light and accommodation. Cranial nerves II through XII are intact. Respiratory: Within normal limits. Cardiovascular: Good capillary refill and brisk radial pulse are observed. Back, Musculoskeletal: No paresthesias or tenderness on the left arm. Extremities: There is mildly diminished sensation to the 4th and 5th digits starting at the wrist and into the palm. Decreased strength is noted with flexion and extension of the 4th and 5th digits. The remainder of the hand exam is benign. Skin: Warm and dry, no rash. Neurological: The patient has a nonfocal neurological exam. Other observations: None. Course Vital Signs Vital signs: Vital Signs Temperature 36.4 C L 08/31/24 08:48 Pulse 66 08/31/24 08:48 Respiratory Rate 18 08/31/24 08:48 Blood Pressure 181/93 H 08/31/24 08:48 Pulse Oximetry 96 08/31/24 08:48 Temperature 36.4 C L 08/31/24 08:48 Temperature Source Oral 08/31/24 08:48 Pulse 66 08/31/24 08:48 Respiratory Rate 18 08/31/24 08:48 Blood Pressure 181/93 H 08/31/24 08:48 Blood Pressure Position Sitting 08/31/24 08:48 Pulse Oximetry 96 08/31/24 08:48 Oxygen Delivery Method Room Air 08/31/24 08:48 Oxygen Flow Rate 0 08/31/24 08:48 Pain Level 0 08/31/24 08:48 Medical Decision Making An Ortho-Glass splint was applied to immobilize the 4th and 5th digits. Initial Assessment: 69-year-old male with left wrist pain and paresthesias to 4th and 5th digits, difficulty with horse trainer strength over the past 2 weeks following an injury to the dorsal aspect of his hand. Differential Diagnosis: - Ulnar tunnel syndrome: Considered due to symptoms of paresthesias and decreased strength in 4th and 5th digits. Plan includes immobilization with Ortho-Glass splint and referral to orthopedics. - Stroke: Excluded due to lack of clinical evidence. ED Course: - Applied Ortho-Glass splint to immobilize 4th and 5th digits for comfort and to improve paresthesias and pain. - Referred to orthopedics for further evaluation. - Referred to primary care physician as patient does not have one. - Notified patient's brother as call or contact centre operator for scheduling appointments. - Discussed return precautions with patient, who demonstrated understanding. Final Assessment: Patient with potential ulnar tunnel syndrome, no clinical evidence of stroke, remains neurovascularly intact. Treatment included splint application and referrals for follow-up. Clinical Impression: - Potential ulnar tunnel syndrome Disposition: - Discharge - Follow-Up: Referral to orthopedics and primary care physician. MDM Components Evaluation: - Number of Differential Diagnoses or Management Options: Ulnar tunnel syndrome, stroke - Amount and Complexity of Data Reviewed: Physical exam, patient history - Risk of Complication and Morbidity or Mortality: Low risk given current neurovascular status and planned follow-up. Quality:SDOH Health Related Social Needs: No Data to Display PFSH All Active Problems (Updated 08/31/24 @ 10:28 by KARINA Patrick) Ulnar tunnel syndrome (Acute) Family history of prostate cancer (Acute) Right hydrocele (Acute) Bladder cancer (Acute) Kidney stones (Chronic) Horseshoe kidney with renal calculus (Chronic) Surgical History History of urologic surgery Social History (Updated 03/14/18 @ 15:20 by Elyse Lundy RN) Smoking/Tobacco Use Status: Current every day Tobacco Type: cigarettes Smoking risk assessment performed?: Yes Alcohol Intake: never Drug use: Never Substance use type: does not use Housing: apartment Current gender identity: male Do you feel safe at home: Yes Do you feel safe in your relationship?: Yes
== END 2024-08-31 10:47 | disposition home or self-care (01) ==
LOC: ER 10:53
PROVIDERS: Emergency Provider Physician Assistant
DX: G56.22 Lesion of ulnar nerve, left upper limb (principal); F17.210 Nicotine dependence, cigarettes, uncomplicated
CPT/HCPCS: 29125; 99283; 73130

== ENCOUNTER 2025-01-29 09:51 | Outpatient (CLI) | payer OTHER, SELFPAY ==
[2025-01-29 19:10] LABS: PSA, Diagnostic 1.1 ng/mL (<=4.5)
== END 2025-01-29 09:52 | disposition home or self-care (01) ==
LOC: LBO 09:51
PROVIDERS: Visit Provider Urology
DX: Z80.42 Family history of malignant neoplasm of prostate (principal); C67.9 Malignant neoplasm of bladder, unspecified
CPT/HCPCS: 36415; 84153

== ENCOUNTER 2025-01-29 11:21 | Outpatient (REF) | payer OTHER, SELFPAY ==
--- NOTE | 2025-01-29 09:15 | PAPNONF_PTH ---
PATIENT: Jaiden Alfonso LOC: [facility] U#:[id number] AGE/SX: 69/M ROOM: RE01/29/[address]: Michel Cleary MD : 1955 BED: DIS: 01/29/2025 SPEC #: [id number] RECD: 01/29/25 12:59 STATUS: MICA REQ #: [id number] ANTOLIN: 01/29/25 09:[address]: Michel Cleary DEPT: [facility] Cytology RECD BY: Shyla Rodríguez ENTERED: 01/29/25 12:59 SP TYPE: DESIREE JACOBS DR: Unknown,Unknown Tissues: 1 - BODY FLUID CYTO(SPUTUM/URINE)[facility] Procedures: BODY FLUID CYTO(URINE/SPUTUM) Comments: [id number] (TV = 50 ml, 30 ml CYTOLYT ADDED) (REFRIGERATED)
== END 2025-01-29 11:22 | disposition home or self-care (01) ==
LOC: LBN 11:21
PROVIDERS: Visit Provider Urology
DX: R82.81 Pyuria (principal); C67.9 Malignant neoplasm of bladder, unspecified
CPT/HCPCS: 88104